=== PATIENT | female | born 1980 | race Caucasian/White ===

== ENCOUNTER 2019-07-10 10:11 | Emergency (ER) | payer MEDICAID, OTHER ==
[~2019-07-10] VITALS: Ht 170.2 cm; Wt 61.4 kg
--- NOTE | 2019-07-10 10:30 | ED General ---
General Stated Complaint: NECK SWOLLEN,DIFFICULTY SWALLOWING Source of Information: Patient History of Present Illness Date Seen by Provider: July 10, 2019 Time Seen by Provider: 10:26 Initial Comments Patient presents with swelling in her neck since yesterday morning, significantly worse today. History of a similar episode of swelling in the same area, although not as prominent about 2 months ago. At that time she was referred to a dentist and started on antibiotics and it resolved. Patient denies any dental pain or injury. Denies any mouth lesions or sore throat. Denies any allergy symptoms, cough or fever. Denies any difficulty breathing. Does have some pain in her right ear without drainage. Allergies and Home Medications Allergies Coded Allergies: No Known Allergies (Verified Allergy, Unknown, 07/10/19) Home Medications Amoxicillin/Potassium Clav 1 Each Tablet, 1 EACH PO BID Prescribed by: SRUTHI HARRINGTON on 07/10/19 1229 Hydrocodone/Acetaminophen 1 Each Tablet, 1 EACH PO Q4H Prescribed by: SRUTHI HARRINGTON on 07/10/19 1229 Patient Home Medication List Home Medication List Reviewed: Yes Review of Systems Review of Systems Constitutional: no symptoms reported; No dizziness, No fever, No malaise, No weakness EENTM: ear pain (right), other (neck swelling); No ear discharge, No blurred vision, No double vision, No eye pain, No tearing, No vision loss, No dental problems, No hoarseness, No mouth pain, No mouth swelling, No nose congestion, No nose pain, No throat pain, No throat swelling Respiratory: No cough, No short of breath, No stridor, No wheezing Cardiovascular: No palpitations, No syncope, No vascular heart diseas Gastrointestinal: No abdominal pain, No nausea, No vomiting Skin: see HPI; No change in color, No hx of skin cancer, No lesions; lumps (right upper neck); No pruritus, No rash Past Hhisxpj-Wrrtcc-Lonbgd Hx Past Med/Social Hx: Reviewed Nursing Past Med/Soc Hx Physical Exam Vital Signs Vital Signs - First Documented 07/10/19 10:38 Temp 37.5 Pulse 91 Resp 18 B/P (MAP) 148/78 (101) Pulse Ox 100 O2 Delivery Room Air Capillary Refill : Height, Weight, BMI Height: '" Weight: lbs. oz. kg; BMI Method: General Appearance: No Apparent Distress, WD/WN Eyes: Bilateral Eye Normal Inspection, Bilateral Eye PERRL, Bilateral Eye EOMI HEENT: PERRL/EOMI, TMs Normal, Normal ENT Inspection, Pharynx Normal, Moist Mucous Membranes Neck: Other (gross edema R upper ant soft tissue, sub mandibular. tender, size of golf ball. ) Respiratory: Chest Non Tender, Lungs Clear, No Accessory Muscle Use, No Respiratory Distress Cardiovascular: Regular Rate, Rhythm, No Edema, No Gallop, No JVD Extremity: Normal Capillary Refill, Normal Inspection, Non Tender Neurologic/Psychiatric: Alert, Oriented x3, No Motor/Sensory Deficits Progress/Results/Core Measures Suspected Sepsis SIRS Temperature: Pulse: Respiratory Rate: Laboratory Tests 07/10/19 10:30: White Blood Count 9.6 Blood Pressure / Mean: Laboratory Tests 07/10/19 10:30: Creatinine 0.64, Platelet Count 325 Results/Orders Lab Results Laboratory Tests Test 07/10/19 10:30 Range/Units White Blood Count 9.6 4.3-11.0 10^3/uL Red Blood Count 4.34 L 4.35-5.85 10^6/uL Hemoglobin 11.6 11.5-16.0 G/DL Hematocrit 36 35-52 % Mean Corpuscular Volume 84 80-99 FL Mean Corpuscular Hemoglobin 27 25-34 PG Mean Corpuscular Hemoglobin Concent 32 32-36 G/DL Red Cell Distribution Width 15.9 H 10.0-14.5 % Platelet Count 325 130-400 10^3/uL Mean Platelet Volume 10.2 7.4-10.4 FL Neutrophils (%) (Auto) 63 42-75 % Lymphocytes (%) (Auto) 18 12-44 % Monocytes (%) (Auto) 10 0-12 % Eosinophils (%) (Auto) 8 0-10 % Basophils (%) (Auto) 1 0-10 % Neutrophils # (Auto) 6.1 1.8-7.8 X 10^3 Lymphocytes # (Auto) 1.7 1.0-4.0 X 10^3 Monocytes # (Auto) 0.9 0.0-1.0 X 10^3 Eosinophils # (Auto) 0.8 H 0.0-0.3 10^3/uL Basophils # (Auto) 0.1 0.0-0.1 10^3/uL Sodium Level 140 135-145 MMOL/L Potassium Level 4.1 3.6-5.0 MMOL/L Chloride Level 104 98-107 MMOL/L Carbon Dioxide Level 25 21-32 MMOL/L Anion Gap 11 5-14 MMOL/L Blood Urea Nitrogen 8 7-18 MG/DL Creatinine 0.64 0.60-1.30 MG/DL Estimat Glomerular Filtration Rate > 60 BUN/Creatinine Ratio 13 Glucose Level 88 70-105 MG/DL Calcium Level 9.0 8.5-10.1 MG/DL My Orders Orders - SRUTHI HARRINGTON DO Ct Neck (Soft Tissue) W (07/10/19 10:25) Ed Iv/Invasive Line Start (07/10/19 10:25) Cbc With Automated Diff (07/10/19 10:25) Basic Metabolic Panel (07/10/19 10:25) Iohexol Injection (Omnipaque 350 Mg/Ml 1 (07/10/19 12:00) Received Contrast (Hold Metformin- Contr (07/10/19 12:00) Sodium Chloride Flush (Catheter Flush Sy (07/10/19 12:00) Ns (Ivpb) (Sodium Chloride 0.9% Ivpb Bag (07/10/19 12:00) Medications Given in ED Current Medications Medications Dose Ordered Sig/Roya Route Start Time Stop Time Status Last Admin Dose Admin Iohexol 75 ml ONCE ONCE IV 07/10/19 12:00 07/10/19 12:01 DC 07/10/19 12:02 75 ML Sodium Chloride 10 ml NEEDED PRN IV 07/10/19 12:00 07/10/19 12:02 10 ML Sodium Chloride 100 ml ONCE ONCE IV 07/10/19 12:00 07/10/19 12:01 DC 07/10/19 12:02 80 ML Vital Signs/I&O 07/10/19 10:38 Temp 37.5 Pulse 91 Resp 18 B/P (MAP) 148/78 (101) Pulse Ox 100 O2 Delivery Room Air Capillary Refill : Diagnostic Imaging Diagonstic Imaging: CT Comments FINDINGS: The right submandibular gland is asymmetrically enlarged with heterogeneous striated enhancement apparent, most indicative of acute sialoadenitis. There is no enlargement of the right submandibular gut and there are no stones along the expected tract of the submandibular duct to indicate sialolithiasis. Asymmetric stranding within the subcutaneous fat of the right lower face and neck is compatible with edema and/or inflammatory stranding. There are a few enlarged right sublingual and submandibular lymph nodes that are also likely reactive in nature. No loculated fluid collection to indicate drainable abscess. The floor of the mouth is normal in appearance. The airway remains widely patent. No retropharyngeal fluid collection. The parapharyngeal fat spaces are symmetric. The thyroid is unremarkable. The parotid glands are normal in appearance as well. The lung apices are clear. Normal regional skeleton. IMPRESSION: 1. Acute sialoadenitis of the right submandibular gland. No imaging features of sialolithiasis. 2. No abscess within the neck. 3. There are a few mildly enlarged right-sided cervical lymph nodes that are reactive in nature from the sialoadenitis. Dictated on workstation # [id number] Dict: 07/10/19 1213 Trans: 07/10/19 1219 [id number] Interpreted by: AKASH ROTHMAN MD Electronically signed by: Departure Impression Primary Impression: Sialoadenitis of submandibular gland Disposition: 01 HOME, SELF-CARE Condition: Stable Departure-Patient Inst. Decision time for Depature: 12:46 Referrals: TRISTIAN GUAJARDO MD (PCP) Primary Care Physician JAYASHREE SCHULTZ MD Patient Instructions: Salivary Gland Infection (DC) Scripts Hydrocodone/Acetaminophen (Hydrocodone-Acetamin 5-325 mg) 1 Each Tablet 1 EACH PO Q4H for Abdominal Pain, #10 TAB Prov: ROVENSTINESRUTHI DO 07/10/19 Amoxicillin/Potassium Clav (Augmentin 875-125 Tablet) 1 Each Tablet 1 EACH PO BID, #14 TAB 0 Refills Prov: ROVENSTINESRUTHI L DO 07/10/19 ROVENSTINESRUTHI L DO July 10, 2019 10:30
--- OUTSIDE RECORDS SUMMARY | 2019-07-10 10:57 | XMS REPORT | Continuity of Care Document ---
Author Organization Unknown Address Unknown Phone Unavailable Allergies There is no data. Medications There is no data. Problems There is no data. Procedures There is no data. Results There is no data. Encounters ACCT No. Visit Date/Time Discharge Status Pt. Type Provider Facility Loc./Unit Complaint [id number] 07/10/2019 10:13:[address] Emergency SRUTHI HARRINGTON DO [facility] FS NECK SWOLLEN,DIFFICULTY SWAL LOWING
[2019-07-10 11:13] LABS: BASOPHILS # (AUTO) 0.1 10^3/uL (0.0-0.1); BASOPHILS % (AUTO) 1 % (0-10); EOSINOPHILS # (AUTO) 0.8 10^3/uL (0.0-0.3); EOSINOPHILS % (AUTO) 8 % (0-10); HEMATOCRIT 36 % (35-52); HEMOGLOBIN 11.6 G/DL (11.5-16.0); LYMPHOCYTES # (AUTO) 1.7 X 10^3 (1.0-4.0); LYMPHOCYTES % (AUTO) 18 % (12-44); MEAN CORPUSCULAR HEMOGLOBIN 27 PG (25-34); MEAN CORPUSCULAR HGB CONC 32 G/DL (32-36); MEAN CORPUSCULAR VOLUME 84 FL (80-99); MEAN PLATELET VOLUME 10.2 FL (7.4-10.4); MONOCYTES # (AUTO) 0.9 X 10^3 (0.0-1.0); MONOCYTES % (AUTO) 10 % (0-12); NEUTROPHILS # (AUTO) 6.1 X 10^3 (1.8-7.8); NEUTROPHILS % (AUTO) 63 % (42-75); PLATELET COUNT 325 10^3/uL (130-400); RED CELL DISTRIBUTION WIDTH 15.9 % (10.0-14.5); WHITE BLOOD COUNT 9.6 10^3/uL (4.3-11.0)
[2019-07-10 11:14] LABS: BUN/CREATININE RATIO 13; CARBON DIOXIDE 25 MMOL/L (21-32); CHLORIDE 104 MMOL/L (98-107); CREATININE SERUM 0.64 MG/DL (0.60-1.30); GFR ESTIMATED > 60; GLUCOSE 88 MG/DL (70-105); POTASSIUM 4.1 MMOL/L (3.6-5.0); SODIUM 140 MMOL/L (135-145)
[2019-07-10] MEDS ORDERED: NS 100 ML (IVPB) BAG IV ONE (12:00)
[2019-07-10] MEDS ORDERED: IOHEXOL 350 MG/ML 100 ML (OMNIPAQUE 350) VIAL IV ONE (12:00)
[2019-07-10] MEDS ORDERED: CATHETER FLUSH 10 ML SYR IV PRN (12:00)
[2019-07-10] MEDS ORDERED: HOLD METFORMIN - RECEIVED CONTRAST 20 ML VIAL IV SCH (12:00)
--- NOTE | 2019-07-10 12:19 | Diagnostic Imaging Report ---
PROCEDURE: CT neck soft tissue with contrast. TECHNIQUE: Multiple contiguous axial images were obtained through the neck after the administration of contrast. Auto Exposure Controls were utilized during the CT exam to meet ALARA standards for radiation dose reduction. INDICATION: Right-sided neck swelling. COMPARISON: None available. FINDINGS: The right submandibular gland is asymmetrically enlarged with heterogeneous striated enhancement apparent, most indicative of acute sialoadenitis. There is no enlargement of the right submandibular gut and there are no stones along the expected tract of the submandibular duct to indicate sialolithiasis. Asymmetric stranding within the subcutaneous fat of the right lower face and neck is compatible with edema and/or inflammatory stranding. There are a few enlarged right sublingual and submandibular lymph nodes that are also likely reactive in nature. No loculated fluid collection to indicate drainable abscess. The floor of the mouth is normal in appearance. The airway remains widely patent. No retropharyngeal fluid collection. The parapharyngeal fat spaces are symmetric. The thyroid is unremarkable. The parotid glands are normal in appearance as well. The lung apices are clear. Normal regional skeleton. IMPRESSION: 1. Acute sialoadenitis of the right submandibular gland. No imaging features of sialolithiasis. 2. No abscess within the neck. 3. There are a few mildly enlarged right-sided cervical lymph nodes that are reactive in nature from the sialoadenitis. Dictated by: Dictated on workstation # [id number]
[2019-07-10] MEDS ORDERED: AMOX-358 PO (12:29)
[2019-07-10] MEDS ORDERED: HYDR-83 PO (12:29)
[2019-07-10 12:45] VITALS: BP 131/73
[2019-07-10] MEDS ORDERED: IBUPROFEN 800 MG (MOTRIN) TAB PO ONE (13:00)
--- NOTE | 2019-07-10 13:01 | NUR ---
At discharge, pt requested some motrin to help with pain, because her motrin from earlier wore off. put in oder for 800 mg of ibuprofen and was given. Vital signs were taken. Dr. Rossi's office was called for follow-up appt. They requested referral from our ER physician, pt's face sheet and summary of ER report. Information was faxed. They said they would give me a call back once they get the information and will call me back with a time. I got pt phone number to call her with appointment details. [phone]
--- NOTE | 2019-07-10 14:42 | NUR ---
Dr. Rossi's office called few minutes ago to let me know they have an opening in [place] on Tuesday, July 13 at 0815 ([address], [place], [place]). They stated if patient needs to reschedule, then they need to call by Tuesday afternoon. Patient was called at this time and informed about appointment and was given all the details. Pt said thank you. I told her we highly recommned her making this appointment. She said she will be there.
== END 2019-07-10 12:45 | disposition home or self-care (01) ==
LOC: ER FS 10:13
DX: K11.20 Sialoadenitis, unspecified (principal)
CPT/HCPCS: 36415; 70491; 80048; 85025

== ENCOUNTER 2019-07-14 08:48 | Observation (INO) | payer MEDICAID ==
[2019-07-14] VITALS (10 sets, daily range): BP systolic 130–154; BP diastolic 74–104
[~2019-07-14] VITALS: Ht 170 cm; Wt 61.0 kg
[~2019-07-14 08:48] MED LIST: AMOX-358 PO; HYDR-83 PO
--- OUTSIDE RECORDS SUMMARY | 2019-07-14 08:59 | XMS REPORT | Continuity of Care Document ---
Author Organization Unknown Address Unknown Phone Unavailable Allergies There is no data. Medications There is no data. Problems There is no data. Procedures There is no data. Results There is no data. Encounters ACCT No. Visit Date/Time Discharge Status Pt. Type Provider Facility Loc./Unit Complaint [id number] 07/12/2019 10:20:00 [facility] EMELINA WYATT [facility]
--- NOTE | 2019-07-14 09:00 | NUR ---
CLAUDE LAIRD admitted to room 404-1, with an admitting diagnosis of RIGHT DENTAL ABSCESS, on 07/14/19 from DIRECT ADMIT via AMBULATORY, accompanied by SELF. CLAUDE LAIRD introduced to surroundings, call light, bed controls, phone, TV, temperature control, lights, meal times, smoking policy, visitor policy, side rail policy, bathrooms and showers. Patient Rights given to patient in the handbook. CLAUDE LAIRD verbalizes understanding that [facility] is not responsible for the loss or damage to any personal effects or valuables that are kept in the patients posession during their hospitalization. The following Patient Care Plans were discussed with the PATIENT: Discharge Planning, GENERAL SURGERY, and KNOWLEDGE DEFICIT. CLAUDE LAIRD verbalizes understanding of Interdisciplinary Patient Education. Patient and/or family were informed about the Rapid Response Team and its purpose.
[2019-07-14] MEDS ORDERED: LACTATED RINGERS 1,000 ML IV PRN ×2 (11:37→11:40)
[2019-07-14] MEDS ORDERED: LIDOCAINE PF 2% 5 ML (XYLOCAINE) VIAL ONE (11:41)
[2019-07-14] MEDS ORDERED: SUCCINYLCHOLINE INJ 100 MG/5 ML SYR ONE (11:41)
[2019-07-14] MEDS ORDERED: MIDAZOLAM 2 MG/2 ML (VERSED) VIAL ONE (11:41)
[2019-07-14] MEDS ORDERED: ONDANSETRON 4 MG/2 ML (SDV) Z0FRAN ONE (11:41)
[2019-07-14] MEDS ORDERED: fentaNYL INJECTION 100 MCG/2 ML AMP ONE ×2 (11:41→12:53)
[2019-07-14] MEDS ORDERED: proPOfol 200 MG/20 ML (DIPRIVAN) VIAL IV ONE (11:41)
[2019-07-14] MEDS ORDERED: SEVOFLURANE (ULTANE) 15 ML INHAL SOLN ONE ×3 (11:43→12:53)
[2019-07-14] MEDS ORDERED: GLYCOPYRROLATE 0.2 MG/ML (ROBINUL) 2 ML VIAL ONE (11:43)
[2019-07-14] MEDS ORDERED: LIDOCAINE/EPI 1%-1:100,000 (XYLOCAINE) 20ML ONE (11:43)
[2019-07-14] MEDS ORDERED: fentaNYL INJECTION 100 MCG/2 ML AMP IV ONE (11:45)
[2019-07-14] MEDS ORDERED: CLINDAMYCIN 900 MG/50 ML IVPB 50 ML IV ONE (12:00)
[2019-07-14 12:01] LABS: BASOPHILS % (AUTO) 0 % (0-10); EOSINOPHILS # (AUTO) 0.2 10^3/uL (0.0-0.3); EOSINOPHILS % (AUTO) 2 % (0-10); HEMATOCRIT 36 % (35-52); HEMOGLOBIN 11.5 G/DL (11.5-16.0); LYMPHOCYTES # (AUTO) 1.2 X 10^3 (1.0-4.0); LYMPHOCYTES % (AUTO) 14 % (12-44); MEAN CORPUSCULAR HEMOGLOBIN 26 PG (25-34); MEAN CORPUSCULAR HGB CONC 32 G/DL (32-36); MEAN CORPUSCULAR VOLUME 82 FL (80-99); MEAN PLATELET VOLUME 9.8 FL (7.4-10.4); MONOCYTES # (AUTO) 0.9 X 10^3 (0.0-1.0); MONOCYTES % (AUTO) 11 % (0-12); NEUTROPHILS % (AUTO) 73 % (42-75); PLATELET COUNT 388 10^3/uL (130-400); RED CELL DISTRIBUTION WIDTH 15.8 % (10.0-14.5); WHITE BLOOD COUNT 8.2 10^3/uL (4.3-11.0)
[2019-07-14 12:12] LABS: CHLORIDE 103 MMOL/L (98-107); POTASSIUM 3.8 MMOL/L (3.6-5.0); SODIUM 138 MMOL/L (135-145)
[2019-07-14 12:13] LABS: CALCIUM 9.8 MG/DL (8.5-10.1)
[2019-07-14 12:14] LABS: GLUCOSE 93 MG/DL (70-105)
[2019-07-14 12:15] LABS: CARBON DIOXIDE 23 MMOL/L (21-32)
[2019-07-14 12:18] LABS: BUN/CREATININE RATIO 8; CREATININE SERUM 0.71 MG/DL (0.60-1.30); GFR ESTIMATED > 60
[2019-07-14] MEDS ORDERED: morphine INJ 10 MG/ML 1ML (SYR OR VIAL) ONE (12:23)
--- NOTE | 2019-07-14 12:23 | Progress Note ---
Standard Progress Note Progress Notes/Assess & Plan Date Seen by a Provider: July 14, 2019 Time Seen by a Provider: 12:15 Progress/Assessment & Plan CQM-Vlzpl-URjpoxn/Physical CC; Swelling Right Neck HPI: Patient presented to clinic with swollen right neck. at leat a five day history with intermittent swellign in past. seen in ER in [place] with diagnosis of sialodadenitis on right history of bad molar on lower right has tried toget into dentist without luck swelling progressive-can't ynanelv-bl-zmprumv right submandibular gland/tirangle PMHX; 4 c-sections all-NKDA Meds: augmentin hydrocodone Exam: Oral cavity-with trismus; bad molar lower right side Neck-swelling over jaw-dental in nature-right neck abscess airway intact IMP; Right Neck Abscess-Dental Rec: 1. will take ot or when available; npo; iv clinidamycin will need 23 hour observation post surgery; home on clinda with drains in place Final Diagnosis Right neck Abscess-dental JAYASHREE SCHULTZ MD July 14, 2019 12:23
--- NOTE | 2019-07-14 12:23 | Progress Note-Pre Operative ---
Pre-Operative Progress Note H&P Reviewed The H&P was reviewed, patient examined and no changes noted. Date Seen by Provider: July 14, 2019 Time Seen by Provider: 12:00 Date H&P Reviewed: July 14, 2019 Time H&P Reviewed: 12:00 Pre-Operative Diagnosis: Right neck Abscess JAYASHREE SCHULTZ MD July 14, 2019 12:23
[2019-07-14] MEDS ORDERED: HYDROmorphone 2 MG/ML VIAL (DILAUDID) ONE (12:24)
--- NOTE | 2019-07-14 12:24 | Progress Note-Post Operative ---
Post-Operative Progess Note Surgeon (s)/Slack Line Yarder (s) Surgeon JAYASHREE SCHULTZ MD Slack Line Yarder n/a Pre-Operative Diagnosis Right neck Abscess Post-Operative Diagnosis same Post-Op Procedure Note Date of Procedure: July 14, 2019 Name of Procedure Performed: I/D Deep Right Neck abscess Description & Findings Description and Findings: n/a Anesthesia Type get Estimated Blood Loss minimal Packing none. Specimen(s) collected/removed right neck abscess with cultures JAYASHREE SCHULTZ MD July 14, 2019 12:24
[2019-07-14] MEDS ORDERED: morphine INJ 10 MG/ML 1ML (SYR OR VIAL) IVP ONE (13:30)
[2019-07-14] MEDS ORDERED: MEPERIDINE (DEMEROL) INJ 50 MG/ML IVP ONE (13:30)
[2019-07-14] MEDS ORDERED: PROMETHAZINE INJ 25 MG/ML (PHENERGAN) AMP IVP ONE (13:30)
[2019-07-14] MEDS ORDERED: HYDROmorphone 2 MG/ML VIAL (DILAUDID) IV ONE (13:30)
[2019-07-14] MEDS ORDERED: ONDANSETRON 4 MG/2 ML (SDV) Z0FRAN IVP PRN (13:30)
[2019-07-14] MEDS: NS IV 1000 ML 1,000 ML IV SCH (14:26)
[2019-07-14] MEDS: HYDROcodone/APAP 7.5MG-325 MG/15 ML (LORTAB) UDC PO PRN ×2 (14:27→18:57)
[2019-07-14] MEDS: ONDANSETRON 4 MG/2 ML (SDV) Z0FRAN IVP PRN (17:50)
[2019-07-14] MEDS: CLINDAMYCIN 900 MG/50 ML IVPB 50 ML IV SCH (20:29)
[2019-07-15] VITALS (7 sets, daily range): BP systolic 123–147; BP diastolic 75–90
[2019-07-15] MEDS: HYDROcodone/APAP 7.5MG-325 MG/15 ML (LORTAB) UDC PO PRN ×5 (00:05→20:53)
[2019-07-15] MEDS: CLINDAMYCIN 900 MG/50 ML IVPB 50 ML IV SCH ×3 (04:25→20:53)
--- NOTE | 2019-07-15 06:37 | Progress Note ---
Standard Progress Note Progress Notes/Assess & Plan Date Seen by a Provider: July 15, 2019 Time Seen by a Provider: 06:30 Progress/Assessment & Plan UNZ-Zxkut-NPaehej/Physical CC; Swelling Right Neck HPI: Patient presented to clinic with swollen right neck. at leat a five day history with intermittent swellign in past. seen in ER in [place] with diagnosis of sialodadenitis on right history of bad molar on lower right has tried toget into dentist without luck swelling progressive-can't soyrcdt-rv-tkopzdn right submandibular gland/tirangle PMHX; 4 c-sections all-NKDA Meds: augmentin hydrocodone Exam: Oral cavity-with trismus; bad molar lower right side Neck-swelling over jaw-dental in nature-right neck abscess airway intact IMP; Right Neck Abscess-Dental Rec: 1. will take ot or when available; npo; iv clinidamycin will need 23 hour observation post surgery; home on clinda with drains in place Lio-07/13 Doing better-still with swelling right side-dressing intact-mild drainage able to eat some-nauseated last night-received zofran-doing better now Exam-dressing dry and intact drains intact-still with mild trismus-but improving will plan on keepingn today for 24 more hours of IV antibiotics then home tomrrow with drains intact plan on drain rmeoval on tue in clinic will need tooth removed in near future to prevent recurrence home on cleocin and vicodin if needed for pain JAYASHREE SCHULTZ MD July 15, 2019 06:37
[2019-07-15] MEDS: NS IV 1000 ML 1,000 ML IV SCH (08:24)
[2019-07-15] MEDS: ONDANSETRON 4 MG/2 ML (SDV) Z0FRAN IVP PRN (10:59)
--- NOTE | 2019-07-15 11:30 | NUR ---
DRESSING CHANGED ON NECK PER DR SCHULTZ'S VERBAL ORDERS TO THE SLAB GRINDER RN. PATIENT TOLERATED DRESSING CHANGE WELL. WILL CONTINUE TO MONITOR.
--- NOTE | 2019-07-15 13:19 | Anesthesia-General Post-Op ---
General Patient Condition Mental Status/LOC: Same as Preop Cardiovascular: Satisfactory Nausea/Vomiting: Present (During meals) Respiratory: Satisfactory Pain: Controlled Complications: Absent Post Op Complications Complications None Follow Up Care/Instructions Patient Instructions None needed. Anesthesia/Patient Condition Patient Condition Patient is doing well, no complaints, stable vital signs, no apparent adverse anesthesia problems. IVETTE VARGAS CRNA July 15, 2019 13:19
[2019-07-15] MEDS: APAP 325 MG/10.15 ML LIQ (TYLENOL) UDC PO PRN ×2 (14:31→23:32)
--- NOTE | 2019-07-15 23:57 | NUR ---
PT STATES THAT HER HEART FEELS "WEIRD" AND ASKED THIS RN TO TAKE A LISTEN. UPON AUSCULTATION S1 AND S2 HEARD HEARD. NO HEART MURMUR OR ABNORMAL BEATS HEARD AT THIS TIME. HEART RATE DID SOUND FAST- 98 BMP PER PULSE OXIMETER. PT STATES THAT IT IS "PROBABLY JUST ANXIETY." THIS RN AGREED. EDUCATION PROVIDED ON BREATHING TECHNIQUES TO HELP CALM PT AND BRING DOWN HEART RATE. THIS RN, ALSO, OFFERED PT SOME WARM OR ICED TEA OR ANY OTHER BEVERAGE/SNACK TO HELP CALM HER. PATIENT DENIES ANY REQUESTS. ALL NEEDS MET AT THIS TIME. THIS RN LEAVES ROOM TO LET PT REST.
[2019-07-16] MEDS: HYDROcodone/APAP 7.5MG-325 MG/15 ML (LORTAB) UDC PO PRN ×3 (01:22→10:35)
[2019-07-16] MEDS: CLINDAMYCIN 900 MG/50 ML IVPB 50 ML IV SCH (04:18)
[2019-07-16] MEDS: APAP 325 MG/10.15 ML LIQ (TYLENOL) UDC PO PRN ×2 (04:19→09:43)
--- NOTE | 2019-07-16 06:46 | Progress Note ---
Standard Progress Note Progress Notes/Assess & Plan Date Seen by a Provider: July 16, 2019 Time Seen by a Provider: 06:30 Progress/Assessment & Plan [id number]-[id number]-SWoxvnj/Physical CC; Swelling Right Neck HPI: Patient presented to clinic with swollen right neck. at leat a five day history with intermittent swellign in past. seen in ER in [place] with diagnosis of sialodadenitis on right history of bad molar on lower right has tried toget into dentist without luck swelling progressive-can't cslpndr-by-btlbkih right submandibular gland/tirangle PMHX; 4 c-sections all-NKDA Meds: augmentin hydrocodone Exam: Oral cavity-with trismus; bad molar lower right side Neck-swelling over jaw-dental in nature-right neck abscess airway intact IMP; Right Neck Abscess-Dental Rec: 1. will take ot or when available; npo; iv clinidamycin will need 23 hour observation post surgery; home on clinda with drains in place Lio-07/14 Doing better-still with swelling right side-dressing intact-mild drainage able to eat some-nauseated last night-received zofran-doing better now Exam-dressing dry and intact drains intact-still with mild trismus-but improving will plan on keepingn today for 24 more hours of IV antibiotics then home tomrrow with drains intact plan on drain rmeoval on tue in clinic will need tooth removed in near future to prevent recurrence home on cleocin and vicodin if needed for pain Lio-07/15 doing better-less swelling still with trismus will discharge after b-fast discharge instructions given we will call patient on tuesday to make follow up apt will send some dressisings home also needs [facility] dental referral which mac harmon work on on tuesday may be discharged after breakjJAYASHREE Noriega MD July 16, 2019 06:46
--- NOTE | 2019-07-16 06:48 | NUR ---
DR. SCHULTZ IN TO SEE PT. DISCHARGING PT TODAY. ASKED TO SEND MATERIALS FOR PT TO CHANGE DRSG. AT HOME. DISCUSSED WITH PT. ALL QUESTIONS ANSWERED AT THIS TIME.
[2019-07-16 08:00] VITALS: BP 112/74
[2019-07-16 10:41] VITALS: BP 112/74
== END 2019-07-16 10:43 | disposition home or self-care (01) ==
LOC: 4TH 08:55
PROVIDERS: ADMIT Otolaryngology Otolaryngology/Facial Plastic Surgery; ATTEND Otolaryngology Otolaryngology/Facial Plastic Surgery
DX: L02.11 Cutaneous abscess of neck (principal); K04.7 Periapical abscess without sinus; Z80.9 Family history of malignant neoplasm, unspecified; Z79.899 Other long term (current) drug therapy
CPT/HCPCS: 36415; 80048; 84703; 85025; 87070; 87075; 87076; 87077; 87081; 87185; 87205; 87635

== ENCOUNTER 2019-11-05 19:25 | Emergency (ER) | payer MEDICAID ==
[~2019-11-05 19:25] MED LIST changes: +ACHD5005 PO; -HYDR-83 PO
[2019-11-05] MEDS ORDERED: IBUPROFEN 800 MG (MOTRIN) TAB PO ONE (19:45)
--- NOTE | 2019-11-05 19:51 | ED Integumentary General ---
General Chief Complaint: Skin/Wound Problems Stated Complaint: LT SIDE FACE SWELLING Nursing Triage Note: Pt presents with left facial swelling that started this evening History of Present Illness Date Seen by Provider: Nov 05, 2019 Time Seen by Provider: 19:30 Initial Comments The patient is a 39-year-old otherwise healthy female with poor dentition, guillermo nned for removal of her teeth next month. She presents for evaluation of nearly painless swelling of a focal area of her left cheek with onset about a half an hour prior to arrival while she was sitting down at home. No other symptoms. No fevers, nausea or vomiting, trismus, pain or swelling of the floor the mouth or elevation of the tongue, dental discomfort, gingival discomfort, trouble breathing or swallowing, shortness of breath. Patient does not take any blood pressure medications and has never had swelling like this before. As above, it is nearly painless; patient just notes some mild discomfort from "skin stretching" around the area. Allergies and Home Medications Allergies Coded Allergies: No Known Allergies (Verified Allergy, Unknown, 07/10/19) Home Medications Hydrocodone/Acetaminophen 1 Each Tablet, 1 EACH PO Q4H Prescribed by: SRUTHI HARRINGTON on 07/10/19 1229 Patient Home Medication List Home Medication List Reviewed: Yes Review of Systems Review of Systems Constitutional: see HPI All Other Systems Reviewed Negative Unless Noted: Yes Past Ugwobpv-Bpsojw-Rlbzvu Hx Past Med/Social Hx: Reviewed Nursing Past Med/Soc Hx Patient Social History Alcohol Use: Denies Use Number of Drinks Today: GG Alcohol Beverage of Choice: Whiskey Recreational Drug Use: No Smoking Status: Current Everyday Smoker Type Used: Cigarettes 2nd Hand Smoke Exposure: Yes Recent Foreign Travel: No Contact w/Someone Who Travel: No Recent Infectious Disease Expo: No Recent Hopitalizations: No Physical Abuse: No Sexual Abuse: No Immunizations Up To Date Tetanus Booster (TDap): Unknown PED Vaccines UTD: Yes Seasonal Allergies Seasonal Allergies: No Past Medical History Surgeries: Yes Section Respiratory: No Currently Using CPAP: No Currently Using BIPAP: No Cardiac: No 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 Head is normocephalic and atraumatic. Neck is supple and nontender. Oropharynx is moist. There is mild swelling in a territorial distribution of the right cheek consistent with likely sublingual salivary gland involvement on that side. There is no erythema of the facial skin and no tenderness to the gingival margin and no other intraoral abnormalities acutely seen. Patient speaking comfortably in full sentences and tolerating secretions very well. Lungs clear to auscultation at all stations. There is a normal S1 and S2 without rubs or gallops and capillary refill is appropriate, less than 2 seconds globally. Abdomen is soft, nontender and nondistended. Skin is warm and dry without cyanosis, clubbing or edema. Psychiatrically, the patient demonstrates appropriate mood and affect and is alert. Progress/Results/Core Measures Results/Orders Vital Signs/I&O 11/05/19 19:25 Temp 37.1 Pulse 68 Resp 16 B/P (MAP) 156/73 (100) Pulse Ox 99 Blood Pressure Mean: 100 Progress Progress Note : Time: 19:49 Progress Note 39-year-old female who presents with 30 minutes of painless swelling of a territorial area of her anterior left cheek, isolated. No odontogenic involvement per history and exam. Gingiva nontender and nonfluctuant. Tolerating secretions well. No shortness of breath. No other swelling. Not on lisinopril or other MANOLO inhibitor. No rash anywhere. Overall scenario is most consistent with acute obstructive left sublingual sialolithiasis. Will treat conservatively with sialogogues and we'll cover with Augmentin given history of severe dental infections in the past, though low suspicion, and refer to Dr. Rossi of ENT for close follow-up in the office in the next 1-2 days. Patient understands that if she feels worse is that of better, has worsening symptoms of any kind or any other new symptoms of concern that she will need to return to the emergency department immediately for reevaluation. All questions are answered. Departure Impression Primary Impression: Sialolithiasis Disposition: HOME, SELF-CARE Condition: Improved Departure-Patient Inst. Referrals: JAYASHREE ROSSI MD Patient Instructions: Salivary Gland Stones Add. Discharge Instructions: Follow-up very closely with Dr. Rossi in the office in the next 1-2 days for a reevaluation of symptoms and a discussion of next steps in care. Purchase some sour candies such as lemon drops and suck on them to help mobilize the stone that is probably blocking your salivary duct. Take the antibiotic as prescribed to cover for infection as we discussed. Ibuprofen as needed for any discomfort. Return to the emergency department right away with worsening symptoms of any kind or with any other new symptoms of concern. Scripts Amoxicillin/Potassium Clav (Augmentin 875-125 Tablet) 1 Each Tablet 1 EACH PO BID for 7 Days, #14 TAB 0 Refills Prov: JIAN BEAVER MD 11/05/19 JIAN BEAVER MD Nov 05, 2019 19:51
[2019-11-05] MEDS ORDERED: AUGMENTIN 875 MG TAB (AMOXICILLIN/CLAVULANATE) ONE (19:53)
[2019-11-05] MEDS ORDERED: AMOX-358 PO (19:55)
[2019-11-05] MEDS ORDERED: AUGMENTIN 875 MG TAB (AMOXICILLIN/CLAVULANATE) PO SCH (20:00)
[2019-11-05 20:02] VITALS: BP 125/73
[2019-11-06] MEDS ORDERED: AUGMENTIN 875 MG TAB (AMOXICILLIN/CLAVULANATE) PO SCH (08:00)
== END 2019-11-05 20:05 | disposition home or self-care (01) ==
LOC: EDUNIT# 19:25 → ER FS 19:26
DX: K11.5 Sialolithiasis (principal); Z20.828 Contact with and (suspected) exposure to other viral communicable diseases; Z82.49 Family history of ischemic heart disease and other diseases of the circulatory system; F17.210 Nicotine dependence, cigarettes, uncomplicated
CPT/HCPCS: 99283

== ENCOUNTER 2020-02-28 09:19 | Emergency (ER) | payer MEDICAID ==
--- NOTE | 2020-02-28 09:31 | NUR ---
PT WAS TOLD TO COME TO THE ER BUT THEN HER DENTIST TOLD HER OH WAIT YOU NEED TO GO TO THE [facility] ER TO SEE DR. MARRERO BC HE IS WAITING ON YOU OVER THERE TO BE ADMITTED. SHE DECIED NOT TO STAY HERE AFTER THAT PHONE CALL.
== END 2020-02-28 09:31 | disposition left against medical advice (07) ==
LOC: EDUNIT# 09:19 → ER FS 09:22
DX: K04.7 Periapical abscess without sinus (principal)

== ENCOUNTER 2020-03-07 12:09 | Emergency (ER) | payer MEDICAID ==
[~2020-03-07] VITALS: Ht 170.2 cm; Wt 59.6 kg
--- NOTE | 2020-03-07 12:23 | ED Headache ---
General Chief Complaint: Head/Cervical Problems Stated Complaint: HEADACHE Source: patient History of Present Illness Date Seen by Provider: Mar 07, 2020 Time Seen by Provider: 12:21 Initial Comments 39-year-old female presents with headache/pressure in her front part of her head behind her eyes. She reports that it is been there since she had some teeth p ulled 4 days ago. She reported all shot yesterday with minimal relief. Patient went to her primary care provider who sent her here because they like to have her further evaluated and a head CT. It reports she been taking some hydrocodone's that she got for her teeth. She's had a history of recurrent dental abscesses, had 3 teeth pulled and is currently on Augmentin. Allergies and Home Medications Allergies Coded Allergies: No Known Allergies (Verified Allergy, Unknown, 07/10/19) Home Medications Amoxicillin/Potassium Clav 1 Each Tablet, 1 EACH PO BID Prescribed by: JIAN BEAVER on 11/05/191954 Hydrocodone/Acetaminophen 1 Each Tablet, 1 EACH PO Q4H Prescribed by: SRUTHI HARRINGTON on 07/10/19 1229 Patient Home Medication List Home Medication List Reviewed: Yes Review of Systems Review of Systems Constitutional: No chills, No fever; malaise Eyes: See HPI; Denies Blurred Vision Ears, Nose, Mouth, Throat: see HPI Respiratory: No cough, No short of breath Cardiovascular: No chest pain, No palpitations Gastrointestinal: No abdominal pain, No nausea, No vomiting Genitourinary: no symptoms reported Musculoskeletal: no symptoms reported Skin: no symptoms reported Psychiatric/Neurological: See HPI, Headache Past Gecxegs-Inrfjd-Jevews Hx Past Med/Social Hx: Reviewed Nursing Past Med/Soc Hx Patient Social History Alcohol Beverage of Choice: Whiskey Type Used: Cigarettes 2nd Hand Smoke Exposure: Yes Recent Hopitalizations: No Immunizations Up To Date Tetanus Booster (TDap): Unknown PED Vaccines UTD: Yes Seasonal Allergies Seasonal Allergies: No Past Medical History Surgeries: Yes Section Respiratory: No Currently Using CPAP: No Currently Using BIPAP: No Cardiac: No 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 oz. kg; 21.10 BMI Method: General Appearance: mild distress HEENT: PERRL/EOMI, other (teeth with recent extractions but no obvious infection or abscess present) Neck: full range of motion, supple Cardiovascular: normal peripheral pulses, regular rate, rhythm Respiratory: lungs clear, normal breath sounds Gastrointestinal: non tender, soft Extremities: normal range of motion Psychiatric: alert, oriented x 3 Crainal Nerves: normal hearing, normal speech, PERRL Coordination/Gait: normal gait Motor/Sensory: no motor deficit, no sensory deficit Skin: normal color, warm/dry Progress/Results/Core Measures Results/Orders Lab Results Laboratory Tests Test 03/07/20 12:30 Range/Units White Blood Count 6.8 4.3-11.0 10^3/uL Red Blood Count 4.40 4.35-5.85 10^6/uL Hemoglobin 11.8 11.5-16.0 G/DL Hematocrit 37 35-52 % Mean Corpuscular Volume 84 80-99 FL Mean Corpuscular Hemoglobin 27 25-34 PG Mean Corpuscular Hemoglobin Concent 32 32-36 G/DL Red Cell Distribution Width 14.5 10.0-14.5 % Platelet Count 311 130-400 10^3/uL Mean Platelet Volume 9.9 7.4-10.4 FL Immature Granulocyte % (Auto) 0 % Neutrophils (%) (Auto) 46 42-75 % Lymphocytes (%) (Auto) 34 12-44 % Monocytes (%) (Auto) 10 0-12 % Eosinophils (%) (Auto) 9 0-10 % Basophils (%) (Auto) 1 0-10 % Neutrophils # (Auto) 3.1 1.8-7.8 X 10^3 Lymphocytes # (Auto) 2.3 1.0-4.0 X 10^3 Monocytes # (Auto) 0.7 0.0-1.0 X 10^3 Eosinophils # (Auto) 0.6 H 0.0-0.3 10^3/uL Basophils # (Auto) 0.1 0.0-0.1 10^3/uL Immature Granulocyte # (Auto) 0.0 0.0-0.1 10^3/uL Sodium Level 137 135-145 MMOL/L Potassium Level 3.8 3.6-5.0 MMOL/L Chloride Level 102 98-107 MMOL/L Carbon Dioxide Level 24 21-32 MMOL/L Anion Gap 11 5-14 MMOL/L Blood Urea Nitrogen 9 7-18 MG/DL Creatinine 0.68 0.60-1.30 MG/DL Estimat Glomerular Filtration Rate > 60 BUN/Creatinine Ratio 13 Glucose Level 78 70-105 MG/DL Calcium Level 9.3 8.5-10.1 MG/DL Corrected Calcium 8.5-10.1 MG/DL Total Bilirubin 0.3 0.1-1.0 MG/DL Aspartate Amino Transf (AST/SGOT) 20 5-34 U/L Alanine Aminotransferase (ALT/SGPT) 6 0-55 U/L Alkaline Phosphatase 43 40-136 U/L C-Reactive Protein < 0.03 <0.50 MG/DL Total Protein 7.6 6.4-8.2 GM/DL Albumin 4.8 H 3.2-4.5 GM/DL My Orders Orders - ROSSY BARNARD DO Ct Head/Maxillofacial Wo (03/07/20 12:24) Cbc With Automated Diff (03/07/20 12:24) Comprehensive Metabolic Panel (03/07/20 12:24) Crp Fs (03/07/20 12:24) Ketorolac Injection (Toradol Injection) (03/07/20 12:24) Metoclopramide Injection (Reglan Injecti (03/07/20 12:24) Lactated Ringers (Lr 1000 Ml Iv Solution (03/07/20 12:24) Ed Iv/Invasive Line Start (03/07/20 12:24) Vital Signs/I&O 03/07/20 12:14 Temp 36.8 Pulse 72 Resp 20 B/P (MAP) 146/98 (114) Pulse Ox 100 O2 Delivery Room Air Progress Progress Note : Time: 13:59 Progress Note A shunt with negative CT and labs. Patient's headache has resolved with treatment and she is ready be discharged home. She should follow-up with her primary care provider as needed Diagnostic Imaging Diagonstic Imaging: CT Comments [facility]. [place], [place] NAME: CLAUDE LAIRD [facility] REC#: [id number] PT STATUS: REG ER : 1980 PHYSICIAN: ROSSY BARNARD DO ADMIT DATE: 03/07/20/ER FS Draft Date of Exam:03/07/20 CT HEAD/MAXILLOFACIAL WO PROCEDURE: CT head and maxillofacial without contrast. TECHNIQUE: Multiple contiguous axial images were obtained through the head and facial bones without the use of intravenous contrast. Auto Exposure Controls were utilized during the CT exam to meet ALARA standards for radiation dose reduction. INDICATION: Headache and recent dental procedure. CT HEAD: CT images of the head were obtained. FINDINGS: Ventricles and sulci are within normal limits for size. There is no intracranial hemorrhage identified. There is no abnormal mass effect or shift of midline structures. IMPRESSION: 1. Unremarkable CT of the head. CT MAXILLOFACIAL: FINDINGS: No paranasal sinus air-fluid level is identified however there is mild mural thickening within the floor of the maxillary sinuses adjacent to the sockets of recently extracted teeth. There is no evidence of definite bone destruction to suggest osteomyelitis. Temporomandibular joints are intact. There is no evidence of intraorbital inflammation. No organized fluid collection is seen to indicate an abscess. IMPRESSION: 1. Membrane thickening in the floor of maxillary sinuses may be secondary to recent dental extraction however no definite abscess or destructive bone lesion is identified. Dictated on workstation # [id number] Dict: 03/07/20 1336 Trans: 03/07/20 1343 [facility] [id number] Interpreted by: SHAD VENTURA MD Departure Impression Primary Impression: Headache Qualified Codes: R51 - Headache Disposition: HOME, SELF-CARE Condition: Stable Departure-Patient Inst. Referrals: TRISTIAN GUAJARDO MD (PCP/Family) Primary Care Physician Patient Instructions: Headache, Adult (DC) Add. Discharge Instructions: Follow-up with your primary care provider as needed All discharge instructions reviewed with patient and/or family. Voiced understanding. ROSSY BARNARD DO Mar 07, 2020 12:23
[2020-03-07] MEDS ORDERED: KETOROLAC 30 MG/ML VIAL IVP STA (12:24)
[2020-03-07] MEDS ORDERED: METOCLOPRAMIDE INJ 10 MG/2 ML (REGLAN) IVP STA (12:24)
[2020-03-07] MEDS ORDERED: LACTATED RINGERS 1,000 ML IV STA (12:24)
[2020-03-07 12:42] LABS: HEMATOCRIT 37 % (35-52); HEMOGLOBIN 11.8 G/DL (11.5-16.0); MEAN CORPUSCULAR HEMOGLOBIN 27 PG (25-34); MEAN CORPUSCULAR HGB CONC 32 G/DL (32-36); MEAN CORPUSCULAR VOLUME 84 FL (80-99); PLATELET COUNT 311 10^3/uL (130-400); WHITE BLOOD COUNT 6.8 10^3/uL (4.3-11.0)
[2020-03-07 12:43] LABS: BASOPHILS % (AUTO) 1 % (0-10); EOSINOPHILS # (AUTO) 0.6 10^3/uL (0.0-0.3); EOSINOPHILS % (AUTO) 9 % (0-10); LYMPHOCYTES # (AUTO) 2.3 X 10^3 (1.0-4.0); LYMPHOCYTES % (AUTO) 34 % (12-44); MEAN PLATELET VOLUME 9.9 FL (7.4-10.4); MONOCYTES # (AUTO) 0.7 X 10^3 (0.0-1.0); MONOCYTES % (AUTO) 10 % (0-12); NEUTROPHILS # (AUTO) 3.1 X 10^3 (1.8-7.8); NEUTROPHILS % (AUTO) 46 % (42-75)
[2020-03-07 12:44] LABS: BASOPHILS # (AUTO) 0.1 10^3/uL (0.0-0.1)
[2020-03-07 13:02] LABS: ALANINE AMINOTRANSFERASE 6 U/L (0-55); ALKALINE PHOSPHATASE 43 U/L (40-136); BILIRUBIN,TOTAL 0.3 MG/DL (0.1-1.0); BUN/CREATININE RATIO 13; CALCIUM 9.3 MG/DL (8.5-10.1); CARBON DIOXIDE 24 MMOL/L (21-32); CHLORIDE 102 MMOL/L (98-107); CREATININE SERUM 0.68 MG/DL (0.60-1.30); GFR ESTIMATED > 60; GLUCOSE 78 MG/DL (70-105); POTASSIUM 3.8 MMOL/L (3.6-5.0); SODIUM 137 MMOL/L (135-145); TOTAL PROTEIN 7.6 GM/DL (6.4-8.2)
[2020-03-07 13:03] LABS: ALBUMIN 4.8 GM/DL (3.2-4.5)
--- NOTE | 2020-03-07 13:43 | Diagnostic Imaging Report ---
PROCEDURE: CT head and maxillofacial without contrast. TECHNIQUE: Multiple contiguous axial images were obtained through the head and facial bones without the use of intravenous contrast. Auto Exposure Controls were utilized during the CT exam to meet ALARA standards for radiation dose reduction. INDICATION: Headache and recent dental procedure. CT HEAD: CT images of the head were obtained. FINDINGS: Ventricles and sulci are within normal limits for size. There is no intracranial hemorrhage identified. There is no abnormal mass effect or shift of midline structures. IMPRESSION: 1. Unremarkable CT of the head. CT MAXILLOFACIAL: FINDINGS: No paranasal sinus air-fluid level is identified however there is mild mural thickening within the floor of the maxillary sinuses adjacent to the sockets of recently extracted teeth. There is no evidence of definite bone destruction to suggest osteomyelitis. Temporomandibular joints are intact. There is no evidence of intraorbital inflammation. No organized fluid collection is seen to indicate an abscess. IMPRESSION: 1. Membrane thickening in the floor of maxillary sinuses may be secondary to recent dental extraction however no definite abscess or destructive bone lesion is identified. Dictated by: Dictated on workstation # [id number]
[2020-03-07 13:55] VITALS: BP 152/89
== END 2020-03-07 13:55 | disposition home or self-care (01) ==
LOC: EDUNIT# 12:09 → ER FS 12:10
DX: R51.9 Headache, unspecified (principal); Z82.49 Family history of ischemic heart disease and other diseases of the circulatory system; Z77.22 Contact with and (suspected) exposure to environmental tobacco smoke (acute) (chronic)
CPT/HCPCS: 36415; 70450; 70486; 80053; 85025; 86141

== ENCOUNTER 2020-08-01 20:52 | Emergency (ER) | payer MEDICAID ==
[~2020-08-01] VITALS: Ht 170 cm; Wt 61.1 kg
[2020-08-01 21:15] VITALS: BP 128/81
--- NOTE | 2020-08-01 21:16 | ED EENT ---
History of Present Illness General Stated Complaint: FACIAL/HEAD/MOUTH SWELLING History of Present Illness Date Seen by Provider: Aug 01, 2020 Time Seen by Provider: 21:16 Initial Comments 39-year-old female presents with some swelling around her lips, some facial swelling and erythema. Patient reports that a couple days ago she was diagnosed with a urinary tract infection. She reports that she got called from [facility] today and told she had E. coli and that she needed new antibiotic. They started her on Bactrim today she is taken and then developed symptoms. She has no wheezing, nausea vomiting or difficulty breathing. Allergies and Home Medications Allergies Coded Allergies: No Known Allergies (Verified Allergy, Unknown, 07/10/19) Home Medications Amoxicillin/Potassium Clav 1 Each Tablet, 1 EACH PO BID Prescribed by: JIAN BEAVER on 11/05/191954 Hydrocodone/Acetaminophen 1 Each Tablet, 1 EACH PO Q4H Prescribed by: SRUTHI HARRINGTON on 07/10/19 1229 Patient Home Medication List Home Medication List Reviewed: Yes Review of Systems Review of Systems Constitutional: see HPI Eyes: No Symptoms Reported Ears: No Symptoms Reported Nose: no symptoms reported Mouth: see HPI Throat: no symptoms reported Respiratory: no symptoms reported Cardiovascular: no symptoms reported Gastrointestinal: no symptoms reported Musculoskeletal: no symptoms reported Past Vzzihaa-Wryfjb-Bcwzyo Hx Past Med/Social Hx: Reviewed Nursing Past Med/Soc Hx Patient Social History Alcohol Beverage of Choice: Whiskey Type Used: Cigarettes 2nd Hand Smoke Exposure: Yes Recent Hopitalizations: No Immunizations Up To Date Tetanus Booster (TDap): Unknown PED Vaccines UTD: Yes Seasonal Allergies Seasonal Allergies: No Past Medical History Surgeries: Yes Section, Tubal Ligation Respiratory: No Currently Using CPAP: No Currently Using BIPAP: No Cardiac: No 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 oz. kg; 20.00 BMI Method: General Appearance: no apparent distress Mouth/Throat: other (Mild swelling around the lips) Neck: supple, normal inspection Cardiovascular: normal peripheral pulses, regular rate, rhythm Respiratory: lungs clear, normal breath sounds Gastrointestinal: non tender, soft Neurologic/Psychiatric: alert, normal mood/affect, oriented x 3 Skin: other (Mild erythema of the face) Progress/Results/Core Measures Progress Progress Note : Progress Note Patient symptoms are consistent with a mild allergic reaction to Bactrim. Discussed with her the need to stop the Bactrim, she can call [facility] in the morning and have them prescribe him another antibiotic based on their susceptibilities. Patient stable and discharged Departure Impression Primary Impression: Allergic reaction due to antibacterial drug Disposition: HOME, SELF-CARE Condition: Stable Departure-Patient Inst. Referrals: TRISTIAN GUAJARDO MD (PCP/Family) Primary Care Physician Patient Instructions: Drug Allergy Add. Discharge Instructions: Benadryl 50 mg every 8 hours as needed Call your primary care provider in the morning to have them prescribe another antibiotic based on your urine susceptibility Return to the ER as needed ROSSY BARNARD DO Aug 01, 2020 21:16
== END 2020-08-01 21:37 | disposition home or self-care (01) ==
LOC: EDUNIT# 20:52 → ER FS 20:53
DX: R22.0 Localized swelling, mass and lump, head (principal); T36.8X5A Adverse effect of other systemic antibiotics, initial encounter; Z77.22 Contact with and (suspected) exposure to environmental tobacco smoke (acute) (chronic)
CPT/HCPCS: 99282

== ENCOUNTER 2022-10-12 21:07 | Emergency (ER) | payer MEDICAID ==
[~2022-10-12] VITALS: Ht 170 cm; Wt 58.0 kg
[2022-10-12] MEDS ORDERED: ONDANSETRON INJECTION 4 MG/2 ML (SDV) IVP STA (21:12)
[2022-10-12] MEDS ORDERED: fentaNYL INJECTION 100 MCG/2 ML VIAL IVP STA ×2 (21:12→22:40)
[2022-10-12] MEDS ORDERED: KETOROLAC INJ 30 MG/ML VIAL IVP STA (21:12)
[2022-10-12] MEDS ORDERED: NS IV 1000 ML 1,000 ML IV STA (21:12)
[2022-10-12 21:20] VITALS: BP 138/81
[2022-10-12 21:30] LABS: BASOPHILS # (AUTO) 0.1 10^3/uL (0.0-0.1); BASOPHILS % (AUTO) 1 % (0-10); EOSINOPHILS # (AUTO) 0.3 10^3/uL (0.0-0.3); EOSINOPHILS % (AUTO) 2 % (0-10); HEMATOCRIT 37 % (35-52); HEMOGLOBIN 11.9 g/dL (11.5-16.0); LYMPHOCYTES # (AUTO) 1.9 10^3/uL (1.0-4.0); LYMPHOCYTES % (AUTO) 16 % (12-44); MEAN CORPUSCULAR HEMOGLOBIN 26 pg (25-34); MEAN CORPUSCULAR HGB CONC 32 g/dL (32-36); MEAN CORPUSCULAR VOLUME 82 fL (80-99); MONOCYTES # (AUTO) 1.1 10^3/uL (0.0-1.0); MONOCYTES % (AUTO) 9 % (0-12); NEUTROPHILS # (AUTO) 8.9 10^3/uL (1.8-7.8); NEUTROPHILS % (AUTO) 72 % (42-75); PLATELET COUNT 427 10^3/uL (130-400); WHITE BLOOD COUNT 12.3 10^3/uL (4.3-11.0)
[2022-10-12 21:31] LABS: BILIRUBIN,URINE NEGATIVE (NEGATIVE); CLARITY,URINE CLOUDY; COLOR,URINE YELLOW; GLUCOSE, URINE (UA) NEGATIVE (NEGATIVE); KETONES,URINE NEGATIVE (NEGATIVE); NITRITE,URINE POSITIVE (NEGATIVE); PROTEIN,URINE 3+ (NEGATIVE)
--- NOTE | 2022-10-12 21:31 | ED Abdominal Pain ---
General Stated Complaint: R SIDE LOWER ABD/BACK PAIN Source of Information: Patient, Family History of Present Illness Date Seen by Provider: Oct 12, 2022 Time Seen by Provider: 21:12 Initial Comments 42-year-old female presenting with complaints of sudden onset approximately 4 hours prior to arrival of low right-sided back pain wrapping around to her groin. She denies having pain like this previously. She does have a history of frequent urinary tract infections and just came off of her menstrual cycle. She had tried to rest at home but could not find any comfortable position. She finally had her family bring her here to the emergency department. She has had nausea with vomiting when the pain gets severe as well. She previously has had several C-sections as well as tubal ligation but denies any other abdominal surgeries. She is not taking any prescription medicines every day. She states that she does have an allergy to sulfa that causes a rash. Timing/Duration: 4-6 Hours Severity/Quality: Severe, Cramping, Sharp Location: RLQ, Flank (right) Activities at Onset: None Associated Symptoms: Back Pain (right sided); No Chest Pain, No Diaphoresis, No Fever/Chills, No Fatigue, No Headache, No Heartburn; Nausea/Vomiting; No Rash, No Shortness of Air, No Swelling/Mass in Abdomen, No Syncope, No Weakness Allergies and Home Medications Allergies Coded Allergies: No Known Allergies (Verified Allergy, Unknown, 07/10/19) Sulfa (Sulfonamide Antibiotics) (Verified Allergy, Unknown, Rash, 10/12/22) Patient Home Medication List Home Medication List Reviewed: Yes Amoxicillin/Potassium Clav (Augmentin 875-125 Tablet) 1 Each Tablet, 1 EACH PO BID Prescribed by: JIAN BEAVER on 11/05/191954 Ciprofloxacin HCl (Ciprofloxacin HCl) 500 Mg Tablet, 500 MG PO BID Prescribed by: LAURENCE FOOTE on 10/12/22 231 Hydrocodone/Acetaminophen (Hydrocodone-Acetamin 5-325 mg) 1 Each Tablet, 1 EACH PO Q4H Prescribed by: SRUTHI HARRINGTON on 07/10/19 1229 Oxycodone HCl/Acetaminophen (Oxycodone-Acetaminophen 5-325) 5 Mg-325 Mg Tablet, 1 EACH PO Q4H PRN for PAIN SEVERE Prescribed by: LAURENCE FOOTE on 10/12/22 2316 Review of Systems Review of Systems Constitutional: No chills, No fever EENTM: No Symptoms Reported Respiratory: No Symptoms Reported Cardiovascular: No Symptoms Reported Gastrointestinal: See HPI Genitourinary: See HPI; Denies Burning Musculoskeletal: no symptoms reported Skin: no symptoms reported Psychiatric/Neurological: No Symptoms Reported Past Rnwpvaz-Logocy-Vwchll Hx Immunizations Up To Date Tetanus Booster (TDap): Unknown PED Vaccines UTD: Yes Seasonal Allergies Seasonal Allergies: No Past Medical History Surgery/Hospitalization HX: sections, tubal ligation Surgeries: Yes Section, Tubal Ligation Respiratory: No Currently Using CPAP: No Currently Using BIPAP: No Cardiac: No 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 oz. kg; 21.00 BMI Method: General Appearance: WD/WN, moderate distress (Patient is writhing on the bed and cannot sit still) HEENT: PERRL/EOMI Respiratory: chest non-tender, lungs clear, normal breath sounds, no respiratory distress, no accessory muscle use Cardiovascular: normal peripheral pulses, regular rate, rhythm Gastrointestinal: normal bowel sounds, soft, no pulsatile mass; No distended; guarding (Right sided); No rebound; tenderness (Right-sided) Extremities: normal range of motion, non-tender, normal capillary refill Neurologic/Psychiatric: alert, oriented x 3, other (Anxious and unable to sit still) Skin: normal color, warm/dry Progress/Results/Core Measures Results/Orders Lab Results Laboratory Tests Test 10/12/22 21:20 10/12/22 21:27 Range/Units Urine Color YELLOW Urine Clarity CLOUDY Urine pH 7.0 5-9 Urine Specific [place] 1.020 1.016-1.022 Urine Protein 3+ H NEGATIVE Urine Glucose (UA) NEGATIVE NEGATIVE Urine Ketones NEGATIVE NEGATIVE Urine Nitrite POSITIVE H NEGATIVE Urine Bilirubin NEGATIVE NEGATIVE Urine Urobilinogen 0.2 < = 1.0 MG/DL Urine Leukocyte Esterase 2+ H NEGATIVE Urine RBC (Auto) 2+ H NEGATIVE Urine RBC 5-10 H /HPF Urine WBC >100 H /HPF Urine Squamous Epithelial Cells NONE /HPF Urine Crystals NONE /LPF Urine Bacteria LARGE H /HPF Urine Casts NONE /LPF Urine Mucus MODERATE H /LPF Urine Culture Indicated YES White Blood Count 12.3 H 4.3-11.0 10^3/uL Red Blood Count 4.59 3.80-5.11 10^6/uL Hemoglobin 11.9 11.5-16.0 g/dL Hematocrit 37 35-52 % Mean Corpuscular Volume 82 80-99 fL Mean Corpuscular Hemoglobin 26 25-34 pg Mean Corpuscular Hemoglobin Concent 32 32-36 g/dL Red Cell Distribution Width 15.5 H 10.0-14.5 % Platelet Count 427 H 130-400 10^3/uL Mean Platelet Volume 9.0 9.0-12.2 fL Immature Granulocyte % (Auto) 1 % Neutrophils (%) (Auto) 72 42-75 % Lymphocytes (%) (Auto) 16 12-44 % Monocytes (%) (Auto) 9 0-12 % Eosinophils (%) (Auto) 2 0-10 % Basophils (%) (Auto) 1 0-10 % Neutrophils # (Auto) 8.9 H 1.8-7.8 10^3/uL Lymphocytes # (Auto) 1.9 1.0-4.0 10^3/uL Monocytes # (Auto) 1.1 H 0.0-1.0 10^3/uL Eosinophils # (Auto) 0.3 0.0-0.3 10^3/uL Basophils # (Auto) 0.1 0.0-0.1 10^3/uL Immature Granulocyte # (Auto) 0.1 0.0-0.1 10^3/uL Percent Immature Platelet Fraction 1.8 0.0-7.6 % Sodium Level 132 L 135-145 MMOL/L Potassium Level 3.7 3.6-5.0 MMOL/L Chloride Level 101 98-107 MMOL/L Carbon Dioxide Level 20 L 21-32 MMOL/L Anion Gap 11 5-14 MMOL/L Blood Urea Nitrogen 8 7-18 MG/DL Creatinine 0.69 0.60-1.30 MG/DL Estimat Glomerular Filtration Rate 112 BUN/Creatinine Ratio 12 Glucose Level 111 H 70-105 MG/DL Calcium Level 9.1 8.5-10.1 MG/DL Corrected Calcium 8.7 8.5-10.1 MG/DL Total Bilirubin 0.4 0.1-1.0 MG/DL Aspartate Amino Transf (AST/SGOT) 22 5-34 U/L Alanine Aminotransferase (ALT/SGPT) 8 0-55 U/L Alkaline Phosphatase 64 40-136 U/L Total Protein 7.5 6.4-8.2 GM/DL Albumin 4.5 3.2-4.5 GM/DL Lipase 28 8-78 U/L My Orders Orders - LAURENCE FOOTE MD Comprehensive Metabolic Panel (10/12/22 21:12) Lipase (10/12/22 21:12) Ua Culture If Indicated (10/12/22 21:12) Ed Iv/Invasive Line Start (10/12/22 21:12) Cbc With Automated Diff (10/12/22 21:12) Ct Abdomen/Pelvis Wo (10/12/22 21:12) Ns Iv 1000 Ml (Sodium Chloride 0.9%) (10/12/22 21:12) Ketorolac Injection (Ketorolac Injection (10/12/22 21:12) Ondansetron Injection (Zofran Injectio (10/12/22 21:12) Urine Bedside (10/12/22 21:12) Fentanyl Injection (Fentanyl Injection (10/12/22 21:12) Urine Culture (10/12/22 21:20) Ceftriaxone Iv/Im (Ceftriaxone Iv/Im) (10/12/22 22:00) Fentanyl Injection (Fentanyl Injection (10/12/22 22:40) Strain Urine (10/12/22 23:07) Oxycodone/Apap 5/325mg Tablet (Oxycodon (10/12/22 23:07) Rx-Oxycodone/Apap 5-325 Mg (Rx-Percocet (10/12/22 23:07) Vital Signs/I&O 10/12/22 21:20 Temp 36.3 Pulse 110 Resp 18 B/P (MAP) 138/81 (100) Progress Progress Note #1: Progress Note Potential diagnosis of kidney stone, pyelonephritis, UTI, bowel obstruction, appendicitis, cholecystitis, diverticulitis, colitis. Establish peripheral IV access and send labs for complete blood count, comprehensive metabolic profile, lipase. Obtain urine and send urinalysis as well as a bedside test. CT scan of the abdomen and pelvis without IV contrast to look for acute obstruction, kidney stone, abdominal pathology to cause her severe pain. Administer normal saline 1 L IV fluid bolus for hydration, fentanyl 50 mcg IV for severe pain, Toradol 30 mg IV for inflammation and pain, Zofran 4 mg IV for nausea and vomiting. Bedside test was negative. Progress Note #2: Time: 22:00 Progress Note Urinalysis showed signs of infection with a specific gravity of 1.020, 3+ protein, nitrites, >100 white blood cells and bacteria. Will order Rocephin 1 g IV for her urinary tract infection. Complete blood count showed white blood cell count at upper limit of normal at 12.3 with a low normal hemoglobin of 11.9. Her comprehensive metabolic panel did not show any acute electrolyte abnormality to account for her complaint of right flank pain. Her lipase was normal at 28 to go against pancreatitis. On my personal review and interpretation of the CT scan of the abdomen pelvis without IV contrast she had a large amount of gas and stool. It looks like there was some hydroureter on the right but I did not appreciate any definite kidney stone. Her pain was doing a little better as the fentanyl and Toradol kicked in. Progress Note #3: Time: 23:00 Progress Note I reviewed the radiologist report from [facility] and the patient did have hydronephrosis of the right kidney as well as stranding consistent with pyelonephritis. Advised that a CT IVP study could detail the kidney and ureters in more detail. Will defer that for now as she is doing better and she has a source of infection with pyelonephritis that could explain the hydronephrosis. Advised if the pain is worsening or not improving then seeing urology would be helpful but could also perform CT abdomen/pelvis with IV contrast if needed at follow up or if not improving in her symptoms. As her pain is more tolerable with the medicines here in the ED will treat for urine infection but also send her with supplies to strain her urine in case there is a kidney stone. We will give information for Dr. Sahni the urologist out of [place]. Counseled on follow-up and return precautions. Prescribed Cipro as antibiotic to help cover for pyelonephritis. We will also prescribe Percocet 5/325 and give 1 pill here and send with 4 pills to help get her through the rest of the night until the pharmacy is open. Use 1 pill every 4 hours as needed for severe pain. Encouraged to drink more fluids and stay well-hydrated. Start taking MiraLAX to help with the bowel gas and constipation that could be caused by the opiates. Counseled that if her symptoms are worsening or not improving then she would need to be seen again and may need to go to [place] or [facility] where urology is available. Diagnostic Imaging Diagonstic Imaging: CT Plain Films/CT/US/NM/MRI: abdomen, pelvis Comments CT abdomen and pelvis without IV contrast Impression: 1. Hydronephrosis of the right kidney but uncertain etiology. 2. No right ureteral radiopaque calculus is noted. The findings are equivocal. Moreover there is stranding about the right perinephric space. Consideration should be given to right pyelonephritis. Correlation with urinalysis is advised and CT IVP study can be considered to follow-up for further assessment of the right kidney and the right renal collecting system. Read by radiologist Dr. Phoenix Gomez MD at 0318 and faxed at [phone] Reviewed: Reviewed [place] Study, Reviewed by Me Departure Impression Primary Impression: Acute right flank pain Additional Impressions: Pyelonephritis Renal colic on right side Disposition: HOME, SELF-CARE Condition: Stable Departure-Patient Inst. Decision time for Depature: 23:12 Referrals: TRISTIAN GUAJARDO MD (PCP/Family) Primary Care Physician Patient Instructions: Flank Pain ED, How to Strain Your Urine, Kidney Infection (DC), Opioid medicines for short-term treatment of pain, Urinary Tract Infection, Adult ED Add. Discharge Instructions: Stay well-hydrated and drink plenty of water. Take the full course of antibiotics to treat for urinary tract and kidney infection. Strain your urine when you go to urinate to see if you pass a kidney stone. If your pain is worsening or not improving then check with Dr. Sahni with urology. The clinic phone number is . He does come to [place] for clinic but you have to check with his main clinic number to see when he has available visits and it may be at [place] or [place] before he would be next available here in [place]. Start taking MiraLAX to help with the gas and bloating as well as preventing constipation from the narcotics. Scripts Oxycodone HCl/Acetaminophen (Oxycodone-Acetaminophen 5-325) 5 Mg-325 Mg Tablet 1 EACH PO Q4H PRN for PAIN SEVERE MDD 6 for 3 Days, #15 TAB 0 Refills Prov: LAURENCE FOOTE MD 10/12/22 Ciprofloxacin HCl (Ciprofloxacin HCl) 500 Mg Tablet 500 MG PO BID for UTI/Pyelonephritis for 7 Days, #14 TAB 0 Refills Prov: LAURENCE FOOTE MD 10/12/22 LAURENCE FOOTE MD Oct 12, 2022 21:31
[2022-10-12 21:40] LABS: BACTERIA,URINE LARGE /HPF; LEUKOCYTE ESTERASE ,URINE 2+ (NEGATIVE); WBC,URINE >100 /HPF
[2022-10-12 21:46] LABS: POTASSIUM 3.7 MMOL/L (3.6-5.0)
[2022-10-12 21:47] LABS: BILIRUBIN,TOTAL 0.4 MG/DL (0.1-1.0); CALCIUM 9.1 MG/DL (8.5-10.1); TOTAL PROTEIN 7.5 GM/DL (6.4-8.2)
[2022-10-12 21:48] LABS: ALBUMIN 4.5 GM/DL (3.2-4.5)
[2022-10-12 21:49] LABS: CREATININE SERUM 0.69 MG/DL (0.60-1.30)
[2022-10-12] MEDS ORDERED: cefTRIAXone IV/IM 1,000 MG in NS (IVPB) 50 ML 50 ML IV STA (22:00)
[2022-10-12] MEDS ORDERED: RX-OXYCODONE/APAP 5-325 MG #4 TAB PK PO STA (23:07)
[2022-10-12] MEDS ORDERED: oxyCODONE/ACETAMINOPHEN 5/325MG TABLET PO STA (23:07)
[2022-10-12] MEDS ORDERED: CIPR500T5 PO (23:14)
[2022-10-12] MEDS ORDERED: OXYC1TAB11 PO (23:15)
--- NOTE | 2022-10-12 23:28 | Diagnostic Imaging Report ---
CT ABDOMEN/PELVIS WO INDICATION: low pelvic pain, right back pain. COMPARISON: None. TECHNIQUE: CT of the abdomen without intravenous contrast. Coronal and sagittal reformatted images were performed. FINDINGS: Distended small bowel loop with possible pneumatosis within the pelvis (image 143 series 3). Free fluid throughout the abdomen with moderate right hydronephrosis. No nephrolithiasis. Included views of the lung bases demonstrate no significant abnormality. The liver, spleen, pancreas, adrenal glands are normal. The osseous structures demonstrate no lytic or sclerotic bone lesion. IMPRESSION: Distended small bowel loop within the pelvis with possible pneumatosis which can be seen with ischemic bowel with associated moderate amount of fluid throughout the abdomen and pelvis. Recommend CT of the abdomen and pelvis with contrast for further workup. Dictated by: Dictated on workstation # [id number]
== END 2022-10-12 23:36 | disposition home or self-care (01) ==
LOC: EDUNIT# 21:07 → ER FS 21:09
DX: N13.6 Pyonephrosis (principal); Z88.2 Allergy status to sulfonamides
CPT/HCPCS: 36415; 74176; 80053; 81000; 83690; 84703; 85025; 87077; 87088

== ENCOUNTER → 2022-11-02 | Outpatient (CLI) | payer MEDICAID ==
[~2022-11-02] MED LIST changes: +CATHETER FLUSH 10 ML SYR IV PRN; +CIPR500T5 PO; +HOLD METFORMIN - RECEIVED CONTRAST 20 ML VIAL IV SCH; +IOHEXOL 350 MG/ML 100 ML (OMNIPAQUE 350) VIAL IV ONE; +NS 100 ML (IVPB) BAG IV ONE; +OXYC1TAB11 PO
--- NOTE | 2022-11-02 10:19 | Diagnostic Imaging Report ---
EXAMINATION: CT abdomen and pelvis with intravenous contrast. TECHNIQUE: Multiple contiguous axial images were obtained through the abdomen and pelvis after the uneventful administration of intravenous contrast. All CT scans use one or more of the following dose optimizing techniques: automated exposure control, MA and/or KvP adjustment based on patient size and exam type or iterative reconstruction. HISTORY: Hematuria, kidney infection. COMPARISON: 10/12/2022 FINDINGS: Lung bases: The lung bases are clear. Solid organs: The liver is normal without focal lesion. The gallbladder is normal. There is no biliary ductal dilation. Pancreas is normal. Spleen is normal. Adrenal glands are normal. The kidneys are normal without hydronephrosis. Bowel: The stomach and small bowel are normal without obstruction. There is a moderate amount of stool seen throughout the colon. The appendix is normal. Peritoneum: There is no intraperitoneal free fluid or free air. No suspicious lymphadenopathy. Vasculature: Calcification of the aorta without aneurysm. Musculoskeletal: No suspicious osseous lesion or compression fracture. Pelvis: The uterus and adnexa are normal. The urinary bladder is normal. IMPRESSION: 1. No acute abnormality in the abdomen or pelvis. 2. Unremarkable appearance of the kidneys. Dictated by: Dictated on workstation # [id number]
== END ==
LOC: RAD FS 08:23
PROVIDERS: ATTEND Urology
DX: N13.5 Crossing vessel and stricture of ureter without hydronephrosis (principal)
CPT/HCPCS: 74177; Q9967